=== PATIENT | male | born 1980 | race Caucasian/White ===

== ENCOUNTER 2016-09-23 19:34 | Emergency (ER) | payer OTHER ==
[~2016-09-23] VITALS: Ht 185.4 cm; Wt 102.1 kg
[2016-09-23] MEDS ORDERED: MORPHINE SULFAT15 MG PO (20:58)
[2016-09-23] MEDS ORDERED: ACETAMINOPHEN500 MG PO (20:58)
[2016-09-23 22:02] VITALS: BP 147/93
== END 2016-09-23 22:08 | disposition home or self-care (01) ==
LOC: EME → TRA 19:34 → EME 19:34 → TRA 22:08
DX: S42.001A Fracture of unspecified part of right clavicle, initial encounter for closed fracture (principal); S93.401A Sprain of unspecified ligament of right ankle, initial encounter; S30.1XXA Contusion of abdominal wall, initial encounter; S40.211A Abrasion of right shoulder, initial encounter; V22.4XXA Motorcycle driver injured in collision with two- or three-wheeled motor vehicle in traffic accident, initial encounter; F17.200 Nicotine dependence, unspecified, uncomplicated
CPT/HCPCS: 71010; 73000; 73030; 73610; 99281; 99285; J1885; J2270; J3010